=== PATIENT | female | born 1985 | race Asian ===

== ENCOUNTER 2016-10-12 15:50 | Emergency (ER) | payer OTHER ==
[~2016-10-12] VITALS: Ht 162.6 cm; Wt 80.0 kg
[~2016-10-12 15:50] MED LIST: ALBU8.5H3 INH; BACTDS PO; NAPR-260 PO; PRED20TA PO
[2016-10-12 15:54] VITALS: Ht 162.6 cm; Wt 80.0 kg
[2016-10-12] MEDS ORDERED: ONDANSETRON (ODT) 4 MG TAB ODT STA (17:07)
[2016-10-12 17:12] LABS: ADD UMIC YES; UR ASCORBIC ACID NEGATIVE (NEGATIVE); UR BILIRUBIN (Dip) NEGATIVE (NEGATIVE); UR BLOOD (Dip) 2+ mg/dL (NEGATIVE); UR CLARITY CLEAR (CLEAR); UR COLOR YELLOW (YELLOW); UR GLUCOSE (Dip) NEGATIVE (NEGATIVE); UR KETONES (Dip) NEGATIVE (NEGATIVE); UR LEUKOCYTE ESTERASE (Dip) NEGATIVE Leu/ul (NEGATIVE); UR MUCUS MANY /HPF (NONE SEEN); UR NITRITE (Dip) NEGATIVE (NEGATIVE); UR RBC 3 /HPF (0-5); UR SPECIFIC GRAVITY (Dip) 1.023 (1.003-1.030); UR SQUAMOUS EPITHELIAL CELL FEW /HPF (FEW); UR TOTAL PROTEIN (Dip) NEGATIVE (NEGATIVE); UR UROBILINOGEN (Dip) NEGATIVE (NEGATIVE)
[2016-10-12] MEDS ORDERED: KETOROLAC 60 MG INJ IM STA (17:14)
[2016-10-12 17:19] LABS: BASOPHIL # 0.1 10^3/ul (0.0-0.1); BASOPHILS % 0.7 % (0.0-2.0); EOSINOPHILS # 0.3 10^3/ul (0.0-0.5); EOSINOPHILS % 3.3 % (0.0-7.0); HEMATOCRIT 38.9 % (37.0-47.0); HEMOGLOBIN 13.4 g/dl (12.0-16.0); LYMPHOCYTES # 2.3 10^3/ul (0.8-2.9); LYMPHOCYTES % 25.1 % (15.0-51.0); MEAN CORPUSCULAR HEMOGLOBIN 29.8 pg (29.0-33.0); MEAN CORPUSCULAR HGB CONC 34.4 g/dl (32.0-37.0); MEAN CORPUSCULAR VOLUME 86.4 fl (82.0-101.0); MONOCYTE # 0.7 10^3/ul (0.3-0.9); MONOCYTES % 7.9 % (0.0-11.0); NEUTROPHIL # 5.8 10^3/ul (1.6-7.5); NEUTROPHILS % 62.3 % (39.0-77.0); PLATELET COUNT 333 10^3/UL (140-415); WHITE BLOOD COUNT 9.3 10^3/ul (4.8-10.8)
[2016-10-12] MEDS ORDERED: HYDROCODONE/APAP (5/325) TAB PO ONE (17:30)
[2016-10-12 17:39] LABS: ALBUMIN 4.3 g/dl (3.3-4.9); ALBUMIN/GLOBULIN RATIO 1.43; BILIRUBIN,INDIRECT 0.1 mg/dl (0-1.1); BILIRUBIN,TOTAL 0.1 mg/dl (0.2-1.3); CREATININE 0.88 mg/dl (0.44-1.00); POTASSIUM 4.2 mmol/L (3.5-5.1); TOTAL PROTEIN 7.3 g/dl (6.1-8.1)
--- NOTE | 2016-10-12 17:44 | RADRPT ---
PROCEDURE: US Pelvis. CLINICAL INDICATION: Pelvic pain TECHNIQUE: Multiple sonographic images of the pelvis were obtained utilizing a transabdominal and endovaginal technique. The images were reviewed on a PACS workstation. COMPARISON: None. FINDINGS: The uterus is visualized and measures 6.7 x 4.6 x 6.3 cm in size. The endometrial echo complex is n ormal and measures 2.7 mm. There is no evidence for free fluid. The right ovary has a normal echotex ture and measures 3.1 x 1.7 x 1.9 cm. The left ovary has a normal echotexture and measures 2.7 x 2. 4 x 1.9 cm. No adnexal masses are noted. IMPRESSION: Unremarkable pelvic ultrasound. RPTAT: HPNM Physician Casa Date Time Electronically viewed and signed by Physician Casa on 10/12/2016 17:44 /
--- NOTE | 2016-10-12 17:51 | RADRPT ---
PROCEDURE: CT abdomen and pelvis without IV contrast. CLINICAL INDICATION: Abdominal pain TECHNIQUE: CT scan of the abdomen and pelvis without contrast was performed on the [employer] ([employer]) volumetric [address] scanner. The patient was scanned without intravenous contrast. Coronal and sagittal refo rmatted images were obtained from the axial source images. The CTDI vol is 17.15 mGy and the DLP is 923.1 mGy-cm. COMPARISON: None. FINDINGS: CT abdomen: The lung bases are clear. The heart size is not enlarged and is without pericardial thickening or e ffusion. The liver is normal in size and density and is without focal mass or intrahepatic biliary dilatation . The spleen is normal in size and homogeneous in density. The stomach is grossly unremarkable. T he pancreas as visualized is normal. The gallbladder is contracted. No common bile duct dilatation is seen. The adrenal glands are symmetric and normal. The kidneys are symmetrically unremarkable a s well. No renal calculus or obstructive uropathy or mass lesion is seen. The aorta is of normal in caliber. There is no retroperitoneal lymphadenopathy. The caitlin hepatis region is clear. The large bowel is stool-filled. The small and large bowel and mesentery, as visua lized, are otherwise unremarkable. The normal appendix is identified. CT pelvis: The pelvic organs are normal. The pelvic sidewalls and inguinal regions are clear. No pelvic mass, lymphadenopathy, or free fluid is seen. No acute inflammation is seen. The urinary bladder is wit hin normal limits. The surrounding osseous structures are unremarkable. No osteolytic or osteoblastic lesion is detect ed. IMPRESSION: 1. No acute pathology in the abdomen and pelvis. 2. Stool filled large bowel. 3. Contracted gallbladder. RPTAT: HPNM Physician Casa Date Time Electronically viewed and signed by Physician Casa on 10/12/2016 17:51 /
[2016-10-12] MEDS ORDERED: ONDA4TAB14 PO (18:19)
[2016-10-12] MEDS ORDERED: IBUP-1542 PO (18:19)
--- NOTE | 2016-10-12 23:17 | ERD ---
ER Documentation Chief Complaint Date/Time DATE: 10/12/16 TIME: 23:09 Chief Complaint LOWER ABD PAIN WITH VAG BLEED X 2 DAYS , UNK IF PREG HPI 31-year-old female patient with no significant past medical history presents to the ED complaining of right and left lower quadrant abdominal pain associated with few episodes of nonbilious nonbloody vomiting and one episode of nonmucoid nonbloody diarrhea that started yesterday. Patient also reports that she has been having vaginal spotting. States that her last menses was sometime 2 weeks ago and she is currently changing 1 pad per day with her vaginal spotting. States that she has been taking ibuprofen without relief of her symptoms. Denies any vaginal discharge. Denies any concern for STDs. Denies any dysuria, urgency, frequency, hematuria. Reports normal daily bowel movements. ROS All systems reviewed and are negative except as per history of present illness. Medications Home Meds Active Scripts Ondansetron (Ondansetron Odt) 4 Mg Tab.rapdis, 4 MG PO Q6H Y for NAUSEA AND/OR VOMITING, #10 TAB Prov:RADHA BAUMANN PA-C 10/12/16 Ibuprofen* (Motrin*) 600 Mg Tab, 600 MG PO Q6, #30 TAB Prov:RADHA BAUMANN PA-C 10/12/16 Albuterol Sulfate* (Proair HFA*) 8.5 Gm Hfa.aer.ad, 2 PUFF INH Q4, #1 INHALER Prov:CLIFF VILLANUEVA PA-C 02/17/16 Prednisone* (Prednisone*) 20 Mg Tab, 40 MG PO DAILY for 4 Days, TAB Prov:CLIFF VILLANUEVA PA-C 02/17/16 Naproxen* (Naprosyn*) 500 Mg Tablet, 500 MG PO BID Y for PAIN AND/OR INFLAMMATION for 10 Days, #20 TAB Prov:MANAGUELOD,LIBRADO P CHICKEN VACCINATOR 10/30/15 Sulfamethoxazole-Trimethoprim* (Bactrim* DS) 800-160 Mg Tab, 1 TAB PO BID for 10 Days, TAB Prov:MANAGUELOD,LIBRADO P CHICKEN VACCINATOR 10/30/15 Allergies Allergies: Coded Allergies: No Known Allergy (Unverified , 10/30/15) PMhx/Soc History of Surgery: No Anesthesia Reaction: No Hx Neurological Disorder: No Hx Respiratory Disorders: No Hx Cardiac Disorders: No Hx Psychiatric Problems: No Hx Miscellaneous Medical Probl: No Hx Alcohol Use: No Hx Substance Use: No Hx Tobacco Use: No Smoking Status: Never smoker Physical Exam Vitals Vital Signs Date Time Temp Pulse Resp B/P Pulse Ox O2 Delivery O2 Flow Rate FiO2 10/12/16 15:54 98.2 74 18 126/73 98 Physical Exam Const: [id number], well-nourished. In no acute distress. Head: Atraumatic, normocephalic Eyes: Normal Conjunctiva without injection. No purulent discharge. ENT: Normal external ear, nose. Moist oropharynx without tonsillar exudates. Non -erythematous pharynx. Uvula midline. No drooling. No trismus. Neck: No cervical midline tenderness. Full range of motion. No meningismus. No cervical lymphadenopathy. No JVD. Resp: Clear to auscultation bilaterally. No wheezing, rhonchi, rales, or crackles. No accessory muscle use. No retractions. Cardio: Regular rate and rhythm. No murmurs, rubs or gallops. Abd: Soft, right and left lower quadrant tenderness non distended. Normal bowel sounds. No palpable masses. No rebound tenderness. No guarding. Negative McBurney's point. Negative psoas sign. Negative obturator sign. : Deferred Skin: No petechiae or rashes Back: No midline tenderness. No CVA tenderness. Ext: No cyanosis, or edema. Neur: Awake and alert. Normal gait. Normal coordination. Psych: Normal Mood and Affect Result Diagram: 10/12/16 1705 10/12/16 1705 Results 24 hrs Laboratory Tests Test 10/12/16 16:30 10/12/16 17:05 Urine Color YELLOW Urine Clarity CLEAR Urine pH 6.0 Urine Specific [place] 1.023 Urine Ketones NEGATIVEmg/dL Urine Nitrite NEGATIVEmg/dL Urine Bilirubin NEGATIVEmg/dL Urine Urobilinogen NEGATIVEmg/dL Urine Leukocyte Esterase NEGATIVELeu/ul Urine Microscopic RBC 3/HPF Urine Microscopic WBC 1/HPF Urine Squamous Epithelial Cells FEW/HPF Urine Mucus MANY/HPF Urine Hemoglobin 2+mg/dL Urine Glucose NEGATIVEmg/dL Urine Total Protein NEGATIVEmg/dl White Blood Count 9.310^3/ul Red Blood Count 4.5010^6/ul Hemoglobin 13.4g/dl Hematocrit 38.9% Mean Corpuscular Volume 86.4fl Mean Corpuscular Hemoglobin 29.8pg Mean Corpuscular Hemoglobin Concent 34.4g/dl Red Cell Distribution Width 13.0% Platelet Count 35847^3/UL Mean Platelet Volume 9.0fl Neutrophils % 62.3% Lymphocytes % 25.1% Monocytes % 7.9% Eosinophils % 3.3% Basophils % 0.7% Nucleated Red Blood Cells % 0.0/100WBC Neutrophils # 5.810^3/ul Lymphocytes # 2.310^3/ul Monocytes # 0.710^3/ul Eosinophils # 0.310^3/ul Basophils # 0.110^3/ul Nucleated Red Blood Cells # 0.010^3/ul Sodium Level 143mmol/L Potassium Level 4.2mmol/L Chloride Level 105mmol/L Carbon Dioxide Level 26mmol/L Anion Gap 16 Blood Urea Nitrogen 15mg/dl Creatinine 0.88mg/dl Glucose Level 96mg/dl Calcium Level 9.0mg/dl Total Bilirubin 0.1mg/dl Direct Bilirubin 0.00mg/dl Indirect Bilirubin 0.1mg/dl Aspartate Amino Transf (AST/SGOT) 24IU/L Alanine Aminotransferase (ALT/SGPT) 29IU/L Alkaline Phosphatase 53IU/L Total Protein 7.3g/dl Albumin 4.3g/dl Globulin 3.00g/dl Albumin/Globulin Ratio 1.43 Lipase 125U/L Current Medications Medications (Trade) Dose Ordered Sig/Tanya Route PRN Reason Start Time Stop Time Status Last Admin Dose Admin Acetaminophen/ Hydrocodone Bitart ([place] (5/325)) 1 tab ONCE ONCE PO 10/12/16 17:30 10/12/16 17:31 Cancel Ondansetron HCl (Zofran Odt) 4 mg ONCE STAT ODT 10/12/16 17:07 10/12/16 17:18 DC 10/12/16 17:57 Ketorolac Tromethamine (Toradol) 60 mg ONCE STAT IM 10/12/16 17:14 10/12/16 17:18 DC 10/12/16 17:57 Procedures/MDM 31-year-old female patient with no significant past medical history presents to the ED complaining of lower abdominal pain associated with vaginal spotting, vomiting, diarrhea that started 2 days ago. Patient is afebrile and nontoxic- appearing. Patient has normal vital signs. Patient was further worked up with CBC, CMP, lipase, UA, urine , pelvic ultrasound, CT of abdomen and pelvis without contrast. Patient's pain and symptoms have improved after treatment with Toradol. CBC: No leukocytosis. No e/o of systemic infection. No e/o anemia. CMP: No e/o severe acidosis, alkalosis, renal failure, diabetic ketoacidosis, liver disease Lipase within normal limits. Urine: No leukocyte esterase, no nitrites, no hematuria. Urine : Negative PROCEDURE: CT abdomen and pelvis without IV contrast. CLINICAL INDICATION: Abdominal pain TECHNIQUE: CT scan of the abdomen and pelvis without contrast was performed on the [employer] volumetric [address] scanner. The patient was scanned without intravenous contrast. Coronal and sagittal reformatted images were obtained from the axial source images. The CTDI vol is 17.15 mGy and the DLP is 923.1 mGy -cm. COMPARISON: None. FINDINGS: CT abdomen: The lung bases are clear. The heart size is not enlarged and is without pericardial thickening or effusion. The liver is normal in size and density and is without focal mass or intrahepatic biliary dilatation. The spleen is normal in size and homogeneous in density. The stomach is grossly unremarkable. The pancreas as visualized is normal. The gallbladder is contracted. No common bile duct dilatation is seen. The adrenal glands are symmetric and normal. The kidneys are symmetrically unremarkable as well. No renal calculus or obstructive uropathy or mass lesion is seen. The aorta is of normal in caliber. There is no retroperitoneal lymphadenopathy. The caitlin hepatis region is clear. The large bowel is stool- filled. The small and large bowel and mesentery, as visualized, are otherwise unremarkable. The normal appendix is identified. CT pelvis: The pelvic organs are normal. The pelvic sidewalls and inguinal regions are clear. No pelvic mass, lymphadenopathy, or free fluid is seen. No acute inflammation is seen. The urinary bladder is within normal limits. The surrounding osseous structures are unremarkable. No osteolytic or osteoblastic lesion is detected. IMPRESSION: 1. No acute pathology in the abdomen and pelvis. 2. Stool filled large bowel. 3. Contracted gallbladder. PROCEDURE: US Pelvis. CLINICAL INDICATION: Pelvic pain TECHNIQUE: Multiple sonographic images of the pelvis were obtained utilizing a transabdominal and endovaginal technique. The images were reviewed on a PACS workstation. COMPARISON: None. FINDINGS: The uterus is visualized and measures 6.7 x 4.6 x 6.3 cm in size. The endometrial echo complex is normal and measures 2.7 mm. There is no evidence for free fluid. The right ovary has a normal echotexture and measures 3.1 x 1.7 x 1.9 cm. The left ovary has a normal echotexture and measures 2.7 x 2.4 x 1.9 cm. No adnexal masses are noted. IMPRESSION: Unremarkable pelvic ultrasound. A differential diagnosis considered includes but is not limited to gastritis, GERD, peptic ulcer disease, cholecystitis, choledocholithiasis, cholangitis, pancreatitis, appendicitis, bowel obstruction, ileus, volvulus, nephrolithiasis , pyelonephritis, hepatitis, perforated viscus, diverticulitis, abdominal hernia , acute abdomen, mesenteric ischemia or other emergent conditions. Discharge medications: Ibuprofen, Zofran Follow up with primary care physician in 1-2 days for referral to carpet installer. Instructed patient to return to the ED sooner for any worsening symptoms. Patient's questions were answered. Patient understood and agreed with discharge plan. Patient discharged stable. Departure Diagnosis: Primary Impression: Abdominal pain Abdominal location: lower abdomen, unspecified Qualified Code: R10.30 - Lower abdominal pain Condition: Stable Patient Instructions: Abdominal Pain, Treating Diarrhea, Nausea, Dysfunctional Uterine Bleeding Referrals: [facility] YOU HAVE RECEIVED A MEDICAL SCREENING EXAM AND THE RESULTS INDICATE THAT YOU DO NOT HAVE A CONDITION THAT REQUIRES URGENT TREATMENT IN THE EMERGENCY DEPARTMENT. FURTHER EVALUATION AND TREATMENT OF YOUR CONDITION CAN WAIT UNTIL YOU ARE SEEN IN YOUR DOCTORS OFFICE WITHIN THE NEXT 1-2 DAYS. IT IS YOUR RESPONSIBILITY TO MAKE AN APPOINTMENT FOR FOLOW-UP CARE. IF YOU HAVE A PRIMARY DOCTOR --you should call your primary doctor and schedule an appointment IF YOU DO NOT HAVE A PRIMARY DOCTOR YOU CAN CALL OUR PHYSICIAN REFERRAL HOTLINE AT IF YOU CAN NOT AFFORD TO SEE A PHYSICIAN YOU CAN CHOSE FROM THE FOLLOWING [facility] [address] [facility] [address] [facility]. [facility] [address] [facility] [address] [facility]. [facility] [address] [facility]. [facility] [address] [facility]. [facility] YOU HAVE RECEIVED A MEDICAL SCREENING EXAM AND THE RESULTS INDICATE THAT YOU DO NOT HAVE A CONDITION THAT REQUIRES URGENT TREATMENT IN THE EMERGENCY DEPARTMENT. FURTHER EVALUATION AND TREATMENT OF YOUR CONDITION CAN WAIT UNTIL YOU ARE SEEN IN YOUR DOCTORS OFFICE WITHIN THE NEXT 1-2 DAYS. IT IS YOUR RESPONSIBILITY TO MAKE AN APPOINTMENT FOR FOLOW-UP CARE. IF YOU HAVE A PRIMARY DOCTOR --you should call your primary doctor and schedule and appointment IF YOU DO NOT HAVE A PRIMARY DOCTOR YOU CAN CALL OUR PHYSICIAN REFERRAL HOTLINE AT . IF YOU CAN NOT AFFORD TO SEE A PHYSICIAN YOU CAN CHOSE FROM THE FOLLOWING [facility] INSTITUTIONS: [facility] [address] [place] [address] [facility] [address] [place] [address] [facility] [address] [place] [address] MANAGER OF [employer]ENS[employer] [place] [address] [facility] [address] [place] [phone] OFFICE FAX DR.ABUSLEME [facility] [address] [place], [place] [phone] [facility] [address] [place], [place] [phone] MICHAEL HALEY [address] [facility], [address] [address] [place] [address] [place] [phone] [facility] ALANNAH [address] [address] [place], [place] [address] [address] [facility] [id number] - JARED SOLIS [address], [facility] [address], [place] [address] [facility]. [address] [address], [facility] [address] [place] [address] [facility] Hours: 8:00 am - 5:00 pm Additional Instructions: Call your primary care doctor TOMORROW for an appointment during the next 2-3 days.See the doctor sooner or return here if your condition worsens before your appointment time - fever, worsening vaginal bleeding, worsening abdominal pain , chest pain, etc. RADHA BAUMANN PA-C Oct 12, 2016 23:17
== END 2016-10-12 18:59 | disposition home or self-care (01) ==
LOC: FTE 15:50
DX: R10.32 Left lower quadrant pain (principal); R10.31 Right lower quadrant pain; R10.2 Pelvic and perineal pain; R11.10 Vomiting, unspecified
CPT/HCPCS: 36415; 74176; 76830; 76856; 80053; 81001; 83690; 85025; 96372; J1885; Z7502; Z7610

== ENCOUNTER 2017-10-02 12:47 | Emergency (ER) | END 2017-10-02 14:00 | disposition home or self-care (01) ==

== ENCOUNTER 2018-03-01 22:27 | Emergency (ER) | END 2018-03-02 02:34 | disposition home or self-care (01) ==

== ENCOUNTER 2018-06-04 20:40 | Outpatient (CLI) | payer OTHER ==
[~2018-06-04] VITALS: Ht 162.6 cm; Wt 93.6 kg
[~2018-06-04 20:40] MED LIST changes: -ALBU8.5H3 INH; +ALBU8.5H8 INH; +CEPH-443 PO; +IBUP-1542 PO; -NAPR-260 PO; +NAPR-985 PO; +ONDA4TAB14 PO
[2018-06-05] MEDS ORDERED: PNV11TAB PO (00:21)
[2018-06-05 00:22] VITALS: Ht 162.6 cm; Wt 93.6 kg
[2018-06-05 00:23] VITALS: BP 116/69; PULSE 82; RESP 18
--- NOTE | 2018-06-05 04:48 | TRIAGE ---
OB Triage Datetime Report Generated by CPN: 06/05/2018 04:48 Datetime: 06/04/2018 23:00 EGA: 20.3 Datetime: 06/04/2018 22:59 Time of Arrival: 06/04/2018 20:30 Arrived By: Ambulatory Arrived From: Home Chief Complaint: Crcamping 5x's per hour for the past 24 hrs. Contractions: Occasional Time Contractions Began: 06/03/2018 23:00 Rupture of Membranes: Denies Vaginal Bleeding: None Vaginal Discharge: Denies Recent Sexual Intercouse: Denies Abdominal Trauma: Not Applicable Patient Complaints: Cramping; Other Additional Patient Complaints: Brownish discharge Time Provider Notified: 06/05/2018 00:05 Provider Notified: Dr. Syed Initial Plan: Cont toco, doppler Datetime: 06/04/2018 22:56 Heart Rate FHR Baseline Rate: 155 Monitor Mode: Doppler Datetime: 06/04/2018 22:53 Stage of : OB Triage Assessment Type: Triage Maternal Assessment Level of Consciousness: Fully Conscious DTR's/Clonus: DTRs 2+; No Clonus Headache: Denies Blurred Vision: No Respiratory Effort: Unlabored; Regular Rhythm; Equal Expansion Breath Sounds, Left: Clear and Equal Breath Sounds, Right: Clear and Equal Nausea/Vomiting: Denies RUQ Epigastric Pain: Denies Lower Extremities Edema: None Degree: None Upper Extremities Edema: None Degree: None Facial Edema: None Temperature Route: Oral Fall Risk Assessment History of Falling: (0) No Secondary Diagnosis: (0) No Ambulatory Aid: (0) Bedrest/Nurse Assist IV Therapy: (0) No Gait: (0) Normal/Bedrest/Immobile Mental Status: (0) Oriented to Own Ability Fall Score: 0 Fall Risk Score Definition: No Risk: No action required Pain Assessment Pain Scale: 5 Pain Presence: Intermittent Pain Type: Cramping Pain Location: Abdomen
--- NOTE | 2018-06-05 16:59 | PN ---
Triage Information Date/Time Reason for visit: Abdominal pain brownish vaginal discharge Weeks of Gestation 20 weeks and 3 days /Para 4 para 2001 Diabetes: none Hypertention: none Objective Vital Signs Date Temp Pulse Resp B/P (MAP) Pulse Ox O2 O2 Flow FiO2 Time Delivery Rate 06/05/18 98.1 82 18 116/69 Room Air 00:23 (85) Contractions: None Disposition: Discharge Assessment/Plan 32 years old 4 para 2001 with single intrauterine at 20 weeks and 3 days complaining of abdominal pain and brownish vaginal discharge. She states had sexual activity 2 days ago. She states good movement. She denies nausea, vomiting, shortness of breath, chest pain, headache, visual changes, vaginal bleeding or LOF. -FHR: No sign of metabolic acidosis- Category I -Contractions: None -Ultrasound performed: Normal cervical length. No placental pathology noted. - Blood type O positive -Symptoms and sign of labor, preeclampsia, kick count discussed with patient, she voiced understanding. All of her questions answered. -Patient was discharged home in stable condition with the appropriate discharge instructions provided. I would like patient to have close follow-up with her primary physician or outpatient clinic in 1-2 days or return to triage for worsening symptoms or any other urgent concerns. ESTHER CHAUDHARY Jun 05, 2018 16:59
== END 2018-06-05 04:25 | disposition home or self-care (01) ==
LOC: OBT 20:40 → L-D 20:41 → OBT 06-05 04:25
PROVIDERS: ATTEND Obstetrics & Gynecology
DX: O26.892 Other specified pregnancy related conditions, second trimester (principal); Z3A.20 20 weeks gestation of pregnancy; R10.9 Unspecified abdominal pain; N89.8 Other specified noninflammatory disorders of vagina
CPT/HCPCS: 76815; 76817; 86900; 86901; Z7500; G0463